=== PATIENT | male | born 1965 | race Hispanic/Latino ===

== ENCOUNTER 2017-07-21 01:41 | Inpatient (IN) | payer MEDICAID ==
[2017-07-21 01:49] VITALS: O2SAT 98
--- NOTE | 2017-07-21 02:36 | ED PDOC ---
HPI: Psych/Substance Abuse Time Seen by Provider: 07/21/17 02:31 Chief Complaint (Nursing): Psychiatric Evaluation Chief Complaint (Provider): crisis eval History Per: Patient History/Exam Limitations: no limitations Onset/Duration Of Symptoms: Days Additional Complaint(s): 51 y/o male presents with suicidal ideations x 1 week, worsening tonight. Patient states he plans to take pills or shoot himself, whatever is the "least painful". Admits to using cocaine and heroin tonight. Denies homicidal ideations, hallucinations, acute medical complaints. Past Medical History Reviewed: Historical Data, Nursing Documentation, Vital Signs Vital Signs: Last Vital Signs Temp 98.2 F 07/21/17 01:43 Pulse 94 H 07/21/17 01:43 Resp 16 07/21/17 01:43 BP 144/79 07/21/17 01:43 Pulse Ox 98 07/21/17 01:43 - Medical History PMH: Asthma, COPD, Depression, HTN, Hypercholesterolemia Denies: Diabetes, Hepatitis, HIV, Chronic Kidney Disease, Seizures, Sexually Transmitted Disease - Surgical History Surgical History: No Surg Hx - Family History Family History: States: Unknown Family Hx - Immunization History Hx Tetanus Toxoid Vaccination: No Hx Influenza Vaccination: No Hx Pneumococcal Vaccination: No - Home Medications Home Medications: Ambulatory Orders Medication Instructions Recorded QUEtiapine [SEROquel] 50 mg PO HS #30 tab 07/10/17 Gabapentin [Neurontin] 300 mg PO BID 07/21/17 Lorazepam [Ativan] 0.5 mg PO PRN PRN 07/21/17 chlordiazePOXIDE [Librium] 25 mg PO DAILY 07/21/17 - Allergies Allergies/Adverse Reactions: Allergies Allergy/AdvReac Type Severity Reaction Status Date / Time No Known Allergies Allergy Verified 07/21/17 02:45 Review of Systems ROS Statement: Except As Marked, All Systems Reviewed And Found Negative Psych: Positive for: Depression, Suicidal ideation Physical Exam - Reviewed Nursing Documentation Reviewed: Yes Vital Signs Reviewed: Yes - Physical Exam Appears: Positive for: Well, Non-toxic, No Acute Distress Head Exam: Positive for: ATRAUMATIC, NORMAL INSPECTION, NORMOCEPHALIC Skin: Positive for: Normal Color Eye Exam: Positive for: Normal appearance ENT: Positive for: Normal ENT Inspection Cardiovascular/Chest: Positive for: Regular Rate, Rhythm Respiratory: Positive for: Normal Breath Sounds Gastrointestinal/Abdominal: Positive for: Normal Exam Back: Positive for: Normal Inspection Extremity: Positive for: Normal ROM Neurologic/Psych: Positive for: Alert, Oriented - Laboratory Results Result Diagrams: 07/21/17 02:54 07/21/17 02:54 - ECG ECG: Positive for: Viewed By Me (reviewed by ED attending) ECG Rhythm: Positive for: Sinus Rhythm O2 Sat by Pulse Oximetry: 98 Pulse Ox Interpretation: Normal - Radiology X-Ray: Viewed By Me X-Ray Interpretation: No Acute Disease - Progress ED Course And Treament: 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 Olivares. labs, urine, ekg, chest xray ordered Medical Decision Making Medical Decision Making: Patient medically stable for psych admission Disposition - Clinical Impression Clinical Impression: Polysubstance (including opioids) dependence, daily use, Depressive disorder - Patient ED Disposition Is Patient to be Admitted: Yes - Disposition Disposition Time: 04:19 Condition: STABLE Forms: [employer] (Turkish)
[2017-07-21 03:08] LABS: BASO # 0.1 K/uL (0.0-0.2); BASO % 1.1 % (0.0-2.0); EOS # 0.1 K/uL (0.0-0.7); EOS % 1.8 % (0.0-4.0); HEMOGLOBIN 11.5 g/dL (12.0-18.0); LYMPH # 2.1 K/uL (1.0-4.3); LYMPH % 28.9 % (20.0-40.0); MEAN CELL VOLUME 91.1 fl (80.0-94.0); MEAN CORPUSCULAR HEMOGLOBIN 31.2 pg (27.0-31.0); MEAN CORPUSCULAR HGB CONC 34.3 g/dL (33.0-37.0); MEAN PLATELET VOLUME 6.2 fl (7.2-11.7); MONO # 0.5 K/uL (0.0-0.8); NEUT # 4.5 K/uL (1.8-7.0); NEUT % 61.2 % (50.0-75.0); NRBC % 0.1 % (0.0-0.0); RBC 3.68 Mil/uL (4.40-5.90); RED CELL DISTRIBUTION WIDTH 14.6 % (11.5-14.5); WHITE BLOOD COUNT 7.3 K/uL (4.8-10.8)
[2017-07-21 03:16] LABS: ALB/GLOB RATIO 1.2 (1.0-2.1); ALBUMIN 3.3 g/dL (3.5-5.0); ALT/SGPT 33 U/L (21-72); AST/SGOT 39 U/L (17-59); BLOOD UREA NITROGEN 30 mg/dl (9-20); CALCIUM 8.5 mg/dL (8.4-10.2); GFR AFRICAN-AMERICAN > 60; GFR NON-AFRICAN AMERICAN 54
[2017-07-21 03:26] LABS: ACETAMINOPHEN < 10.0 ug/ml (10.0-30.0); SALICYLATE < 1.0 mg/dl
[2017-07-21 03:48] LABS: URINE BACTERIA RARE (<OCC); URINE BILIRUBIN NEGATIVE (NEGATIVE); URINE BLOOD NEGATIVE (NEGATIVE); URINE CLARITY CLEAR (Clear); URINE COLOR YELLOW (YELLOW); URINE GLUCOSE (UA) 50 mg/dL (Normal); URINE LEUKOCYTE ESTERASE NEG Leu/uL (Negative); URINE PROTEIN 30 mg/dL (NEGATIVE); URINE UROBILINOGEN 0.2-1.0 mg/dL (0.2-1.0)
[2017-07-21 04:01] LABS: BARBITURATES, UR NEGATIVE (NEGATIVE)
[2017-07-21 05:29] LABS: BENZODIAZEPINES, UR NEGATIVE (NEGATIVE); OPIATES, UR POSITIVE (NEGATIVE); PHENCYCLIDINE, UR NEGATIVE (NEGATIVE)
[2017-07-21] MEDS ORDERED: Magnesium Hydroxide Susp 30 ml UD PO PRN (06:08)
[2017-07-21] MEDS ORDERED: DiphenhydrAMINE 50 mg/ml Inj IM PRN (06:08)
[2017-07-21] MEDS ORDERED: Alum-Mag Hydrox-Simethicone Susp (30 mL) PO PRN (06:08)
--- NOTE | 2017-07-21 06:31 | PCM.BM ---
Treatment Plan Problems - Problems identified on initial assessmt Hopelessness/Helplessness Date Initiated: 07/21/17 Time Initiated: 06:29 Assessment reference: NA Status: Active Treatment assets and liabiliti Patient Assests: cooperative, self-reliant, ADL independent, negotiates basic needs, good past tx response Patient Liabilities: financial problems, poor support system, substance abuse ( daily heroin and cocaine abuser) - Milieu Protocol Maintain good personal hygiene: daily Remind patient to perform daily oral care , every other day Encourage regular showers Conduct patient checks and document Observation sheet: Q15 minutes Maintain personal safety: every shift Educate patient to report safety concerns to staff, every shift Monitor environment for contraband/sharps Medication safety: Monitor for expected outcome, potential side effects: every shift, Assess barriers to learning: every shift, Assess readiness for medication education: every shift
[2017-07-21] MEDS ORDERED: Albuterol 0.083% Inhal Sol (2.5 mg/3 mL) UD INH PRN (06:34)
[2017-07-21] MEDS: Multivitamin With Minerals Tab PO SCH (08:43)
[2017-07-21 08:44] LABS: T4 5.88 ug/dl (5.5-11.0)
--- NOTE | 2017-07-21 09:02 | RAD ---
HISTORY: clearance COMPARISON: No prior. FINDINGS: LUNGS: No active pulmonary disease. PLEURA: No significant pleural effusion identified, no pneumothorax apparent. CARDIOVASCULAR: Normal. OSSEOUS STRUCTURES: No significant abnormalities. VISUALIZED UPPER ABDOMEN: Normal. OTHER FINDINGS: None. IMPRESSION: No active disease.
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
[2017-07-21] MEDS ORDERED: Albuterol-Ipratrop 3 mg / 0.5 (3 ml) UD INH PRN (10:47)
--- NOTE | 2017-07-21 14:11 | PCM.PSYCH ---
Initial Psychiatric Evaluation - Initial Psychiatric Evaluation Type of Admission: Voluntary Legal Status: Capacity Chief Complaint (in patient's own words): I am tired and I could not talk Patient's Reaction to Hospitalization: pt requested help History of Present Illness and Precipitating Events: pt with previous diagnosis of depression, opiate cocaine use disorder, recently discharged from [facility], non compliant with treatment or follow up, presented to ER with increased depression and suicidal ideation . relates that to homelessness and financial difficulties pt seen in bed isolative in his room, poor eye contact , reported depressed mood , anhedonia, poor energy, passive suicidal ideations without plan or intent on unit, urine toxicology positive for cocaine and opiates Current Medications: Active Medications Generic Name Dose Route Start Last Admin Trade Name Freq PRN Reason Stop Dose Admin Acetaminophen 650 mg 07/21/17 06:08 Tylenol 325mg Tab PO Q4 PRN pain level 4-7 Al Hydrox/Mg Hydrox/Simethicone 30 ml 07/21/17 06:08 Maalox Plus 30 Ml PO Q4 PRN Dyspepsia Albuterol/Ipratropium 3 ml 07/21/17 10:47 Duoneb 3 Mg/0.5 Mg (3 Ml) Ud INH RQ4 PRN Shortness of Breath Clonidine HCl 0.1 mg 07/21/17 09:00 07/21/17 08:43 Catapres PO 0.1 mg Q8 KAMILA Administration Diphenhydramine HCl 50 mg 07/21/17 06:08 Benadryl IM Q6 PRN Extrapyramidal S/S Unable PO Diphenhydramine HCl 50 mg 07/21/17 06:08 Benadryl PO Q6 PRN Extrapyramidal Symptoms Diphenhydramine HCl 50 mg 07/21/17 06:13 Benadryl PO HS PRN Sleep Gabapentin 100 mg 07/21/17 13:00 07/21/17 13:37 Neurontin PO 100 mg TID KAMILA Administration Haloperidol 5 mg 07/21/17 06:08 Haldol PO Q4 PRN Agitation Haloperidol Lactate 5 mg 07/21/17 06:08 Haldol IM Q4 PRN Agitation, Unable to Take PO Ibuprofen 800 mg 07/21/17 06:16 Motrin Tab PO Q6H PRN pain level 8-10 Loperamide HCl 2 mg 07/21/17 06:17 Imodium PO QID PRN after each loose BM Lorazepam 2 mg 07/21/17 06:08 Ativan IM Q4 PRN Anxiety/Agitation,Unable PO Lorazepam 2 mg 07/21/17 06:08 Ativan PO Q4 PRN Anxiety/Agitation Magnesium Hydroxide 30 ml 07/21/17 06:08 Milk Of Magnesia PO HS PRN Constipation Multivitamins/Minerals 1 tab 07/21/17 09:00 07/21/17 08:43 Therapeutic-M Tab PO 1 tab DAILY KAMILA Administration Trazodone HCl 100 mg 07/21/17 12:13 Desyrel PO HS PRN Insomnia Past Psychiatric History - Past Psychiatric History Explanation of prior treatment: multiple inpatient hospitalizations, non compliant with treatment History of ETOH/Drug Use: cocaine and opiate use Pertinent Medical Hx (Current Medical&Sleep Prob, Allergies): Allergies Allergy/AdvReac Type Severity Reaction Status Date / Time No Known Allergies Allergy Verified 07/21/17 02:45 QUEtiapine [SEROquel] 50 mg PO HS #30 tab 07/10/17 Gabapentin [Neurontin] 300 mg PO BID 07/21/17 Lorazepam [Ativan] 0.5 mg PO PRN PRN 07/21/17 chlordiazePOXIDE [Librium] 25 mg PO DAILY 07/21/17 Mental Status Examination - Personal Presentation Personal Presentation: Looks older than stated age - Affect Affect: Depressed - Motor Activity Motor Activity: Psychomotor Retardation - Reliability in Providing Information Reliability in Providing Information: Poor, due to altered mood - Speech Speech: Irrelevant - Mood Mood: Depressed, Anxious - Formal Thought Process Formal Thought Process: Circumstantial - Hallucinations/Delusions Additional comments: pt denied perceptual disturbances, no psychotic symptoms elicited - Obsessions/Compulsions Obsessions: No Compulsions: No - Cognitive Functions Orientation: Person Judgement: Imparied, as evidence by: Poor judgement, Imparied, as evidence by: Lack of insight into illness - Risk Risk: Withdrawal, Diminished functioning - Strength & Assets Inventory Strength & Assets Inventory: Life experience - Limitations Additional comments: homeless DSM 5 DX - DSM 5 DSM 5 Diagnosis: 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
--- NOTE | 2017-07-21 18:53 | CARD ---
APPROVED REPORT EKG Measurement Heart [id number] <Conclusion> Normal sinus rhythm Normal ECG
[2017-07-22] MEDS: Multivitamin With Minerals Tab PO SCH (08:46)
[2017-07-22 08:50] VITALS: BP 173/108; PULSE 104
[2017-07-22 09:21] LABS: HDL CHOLESTEROL 58 MG/DL (30-70)
[2017-07-22 09:26] VITALS: RESP 20; TEMP 95.7
[2017-07-22 09:32] LABS: LDL CHOLESTEROL 139 mg/dL (0-129)
[2017-07-22] MEDS ORDERED: Albuterol HFA 90 mcg/actuation (8 g) INH PRN (13:35)
--- NOTE | 2017-07-22 13:40 | PCM.PYCHPN ---
Psychiatric Progress Note - Psychiatric Progress Note Patient seen today, length of contact: pt evaluated discussed with team chart reviewed Patient Chief Complaint: I am sick because of the withdrawals Problems Identified/Issues Discussed: pt seen in bed , dressed in hospital gown, unkempt, disheveled , refusing to participate in treatment and refusing to attend treatment team, pt reported feeling tired because of opiate withdrawal, reported poor sleep with early insomnia , low energy and anhedonia denied perceptual disturbances, denied any current suicidal or homicidal ideations Medical Problems: multiple inpatient hospitalizations, non compliant with treatment DSM 5 Symptoms Update: 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 cocaine use disorder opiate use disorder Medication Change: Yes (start remeron 15mg qhs) Medical Record Reviewed: Yes Mental Status Examination - Cognitive Function Orientation: Person Attention: WNL Concentration: WNL Association: WNL Fund of Knowledge: Poor Decription of patient's judgement and insights: poor insight impaired judgment - Mood Mood: Depressed, Anxious - Affect Affect: Constricted, Depressed - Speech Speech: Loud - Formal Thought Process Formal Thought Process: Circumstantial Psychotic Thoughts and Behaviors: pt denied perceptual disturbances, non elicited - Suicidal Ideation Suicidal Ideation: No - Homicidal Ideation Homicidal Ideation: No Goal/Treatment Plan - Goal/Treatment Plan Need for Continued Stay: Severe depression anxiety, Discharge may exacerbated symptoms Progress Toward Problem(s) and Goals/Treatment Plan: clonidine 0.1 q8 and monitor for symptoms and signs of opiate withdrawal and 0.1mg q8 prn neurontin 100mg tid discontinue trazodone stat remeron 15mg qhs motivational therapy
--- NOTE | 2017-07-22 14:33 | PCM.PYCHDC ---
Mental Status Examination - Mental Status Examination Orientation: Person, Place Memory: Intact Mood: Neutral Affect: Broad Speech: Appropriate Attention: WNL Concentration: WNL Association: WNL Formal Thought Process: No Impairment Description of patient's judgement and insight: poor insight impaired judgment Psychotic Thoughts and Behaviors: pt denied perceptual disturbances, non elicited Suicidal Ideation: No Current Homicidal Ideation?: No Discharge Summary - Discharge Note Reason for Hospitalization: pt requested help pt with previous diagnosis of depression, opiate cocaine use disorder, recently discharged from [facility], non compliant with treatment or follow up, presented to ER with increased depression and suicidal ideation . relates that to homelessness and financial difficulties pt seen in bed isolative in his room, poor eye contact , reported depressed mood , anhedonia, poor energy, passive suicidal ideations without plan or intent on unit, urine toxicology positive for cocaine and opiates Laboratory Data: Abnormal Lab Results 07/21/17 07/22/17 08:10 08:20 Triglycerides 100 Cholesterol 230 H LDL Cholesterol Direct 139 H HDL Cholesterol 58 RPR Nonreactive Consultations:: List each consultation separately and include: 1. Reason for request. 2. Findings. 3. Follow-up Summary of Hospital Course include:: 1. Description of specific treatment plan utilized for patients during their course of treatmen. 2. Summarize the time- course for resolution of acute symptoms and/or regressed behaviors. 3. Describe issues identified and worked on during hospitalization. 4. Describe medication utilized. 5. Describe medical problems identified and treated. 6. Reassessment of suicide risk Summary of Hospital Course: pt on admission was started on clonidine protocol, and monitored for symptoms and signs of opiate withdrawal, neurontin 100mg tid for anxiety trazodone 100mg qhs for insomnia patient on second day of admission requested to be discharged against medical advise pt was advised about the risk of possible relapse and accidental overdose, pt understood the risks of being discharged while on withdrawal, continued to request to be discharged against medical advise pt at current mental status denied any current suicidal or homicidal ideations denied perceptual disturbances, non elicited pt does not meet criteria for involuntary admission , will be discharged against medical advise - Final Diagnosis (DSM 5) Condition upon Discharge: STABLE DSM 5: cocaine induced mood disorder with depressive features cocaine use disorder opiate use disorder Disposition: HOME/ ROUTINE Follow-up Treatment Plan: clonidine 0.1 q8 and monitor for symptoms and signs of opiate withdrawal and 0.1mg q8 prn neurontin 100mg tid discontinue trazodone stat remeron 15mg qhs motivational therapy - Antipsychotic Medications Pt discharged on 2 or more routine antipsychotic medications: No
== END 2017-07-22 15:18 | disposition home or self-care (01) | DRG 744 ==
LOC: H.ER 01:41 → H.ERHOLD 04:18 → H.PSYCH 05:38
PROVIDERS: ADMIT Psychiatry & Neurology Psychiatry; ATTEND Psychiatry & Neurology Psychiatry
PROC: GZHZZZZ Group Psychotherapy (ICD-10-PCS; principal; 2017-07-21)
DX: F14.94 Cocaine use, unspecified with cocaine-induced mood disorder (principal); J44.9 Chronic obstructive pulmonary disease, unspecified; F11.90 Opioid use, unspecified, uncomplicated; F32.9 Major depressive disorder, single episode, unspecified; R45.851 Suicidal ideations; Z59.0 Homelessness; F17.210 Nicotine dependence, cigarettes, uncomplicated; I10 Essential (primary) hypertension; E78.00 Pure hypercholesterolemia, unspecified; Z91.19 Patient's noncompliance with other medical treatment and regimen; G47.00 Insomnia, unspecified; Z59.9 Problem related to housing and economic circumstances, unspecified